=== PATIENT | female | born 1990 | race Caucasian/White ===

== ENCOUNTER 2019-05-13 20:38 | Emergency (ER) | payer OTHER ==
[~2019-05-13] VITALS: Ht 161.3 cm; Wt 93.4 kg
[2019-05-13 20:43] VITALS: BP 137/82
--- NOTE | 2019-05-13 20:49 | NUR ---
PT TAKEN TO BED 9
--- NOTE | 2019-05-13 20:57 | NUR ---
29 Y/O MALE PRESENTS TO ED, C/O LOWER ABDOMINAL PAIN 01/17 THAT STARTED TODAY. BS ACTIVE X4 QUADRANTS. SOFT, NON TENDER. C/O N/V/D. PT STATES HAVING NO APPETITE FOR FOOD. DIARRHEA IS WATERY. PT TOOK MOTRIN 800 AT APPROXIMATELY 1800 UNABLE TO ALLEVIATE PAIN. PT VSS. ERMD AWARE. WILL CONTINUE TO MONITOR.
[2019-05-13 21:47] VITALS: BP 137/82
--- NOTE | 2019-05-13 21:47 | NUR ---
PT DISCHARGED BY DR RUBIO PROVIDED WITH PAPERWORK. NO RX PROVIDED. EDUCATED PT REGARDING D/C DIAGNOSIS AND INSTRUCTIONS. PT VERBALIZED UNDERSTANDING OF TEACHING. TOLD PT TO FOLLOW UP WITH PCP AND WHEN TO RETURN TO ED. PT VSS. ALL QUESTIONS ANSWERED.
== END 2019-05-13 21:47 | disposition home or self-care (01) ==
LOC: MED 20:38
DX: K30 Functional dyspepsia (principal)
CPT/HCPCS: 99283

== ENCOUNTER 2019-07-01 07:54 | Emergency (ER) | payer OTHER ==
[~2019-07-01] VITALS: Ht 160 cm; Wt 86.2 kg
[2019-07-01 08:01] VITALS: BP 139/71
--- NOTE | 2019-07-01 08:02 | NUR ---
29 Y/O F WITH C/C OF MENSTRUAL BLEEDING X5 MONTHS. PER PT PASSING BLOOD CLOTS, AND DOES NOT HAVE A HX OF PREVIOUS BLOOD TRANSFUSIONS. PER PT NKA. NO MEDICAL HX. NO RX. DENIES N/V/D. SIDE RAIL X1. FAMILY AT BEDSIDE.
--- NOTE | 2019-07-01 08:33 | NUR ---
LAB AT BEDSIDE
[2019-07-01 08:51] LABS: BASOPHILS # (AUTO) 0.1 K/uL (0.00-0.22); BASOPHILS % (AUTO) 1.1 % (0.0-2.0); EOSINOPHILS # (AUTO) 0.1 K/uL (0-0.4); EOSINOPHILS % (AUTO) 1.4 % (0.0-4.0); HEMATOCRIT 33.1 % (36-48); HEMOGLOBIN 10.1 g/dL (12.0-16.0); LYMPHOCYTES # (AUTO) 2.4 K/uL (2.5-16.5); LYMPHOCYTES % (AUTO) 27.8 % (20.5-51.1); MEAN CORPUSCULAR HEMOGLOBIN 22 pg (27-31); MEAN CORPUSCULAR HGB CONC 31 g/dL (33-37); MEAN CORPUSCULAR VOLUME 71.3 fL (80-94); MONOCYTES # (AUTO) 0.6 K/uL (0.8-1.0); MONOCYTES % (AUTO) 7.2 % (1.7-9.3); NEUTROPHILS # (AUTO) 5.5 K/uL (1.8-7.7); NEUTROPHILS % (AUTO) 62.5 % (42.2-75.2); PLATELET COUNT (AUTO) 493 K/uL (140-450); RED BLOOD CELL COUNT(AUTO) 4.64 MIL/uL (4.20-5.40); RED CELL DISTRIBUTION WIDTH 16.5 % (11.6-13.7); WHITE BLOOD COUNT (AUTO) 8.7 K/uL (4.8-10.8)
--- NOTE | 2019-07-01 09:01 | NUR ---
ULTRASOUND AT BEDSIDE
[2019-07-01 09:02] LABS: PROTHROMBIN TIME 9.8 secs (10.8-13.4)
[2019-07-01 09:05] LABS: APPEARANCE,URINE CLOUDY (CLEAR); BILIRUBIN,URINE NEGATIVE (NEGATIVE); BLOOD, URINE 3+ (NEGATIVE); COLOR,URINE RED (YELLOW); LEUKOCYTE ESTERASE ,URINE 1+ (NEGATIVE); NITRITE, URINE POSITIVE (NEGATIVE); PH,URINE 5.5 (5.0-9.0); UGLUCOSE NEGATIVE (NEGATIVE)
[2019-07-01 09:20] LABS: BARBITURATE, URINE NEG. ng/ml (NEG <=200); BENZODIAZEPINE, URINE NEG. ng/mL (NEG <=200); CANNABINOID, URINE NEG. ng/mL (NEG <=50); COCAINE, URINE NEG. ng/mL (NEG <=300); OPIATE, URINE NEG. ng/mL (NEG <=2000); PHENCYCLIDINE SCREEN,URINE NEG. ng/mL (NEG <=25)
[2019-07-01 09:32] LABS: RBC,URINE 50-80 /HPF (0-5); WBC,URINE 0-5 /HPF (0-5)
--- NOTE | 2019-07-01 09:57 | NUR ---
PT RESTING IN BED, FAMILY AT BEDSIDE, SIDE RAIL X1
[2019-07-01] MEDS ORDERED: LEVOFLOXACIN 500 MG TAB PO ONE (10:15)
[2019-07-01 11:03] VITALS: BP 114/67
--- NOTE | 2019-07-01 11:03 | NUR ---
Patient discharged with v/s stable. Written and verbal after care instructions given and explained. Patient alert, oriented and verbalized understanding of instructions. Ambulatory with steady gait. All questions addressed prior to discharge. ID band removed. Patient advised to follow up with PMD. Rx of LEVAQUIN, TYLENOL given. Patient educated on indication of medication including possible reaction and side effects. Opportunity to ask questions provided and answered.
== END 2019-07-01 11:03 | disposition home or self-care (01) ==
LOC: MED 07:54
DX: N92.1 Excessive and frequent menstruation with irregular cycle (principal); N39.0 Urinary tract infection, site not specified; N30.90 Cystitis, unspecified without hematuria
CPT/HCPCS: 36415; 76856; 80305; 81001; 81025; 84702; 85025; 85610; 85730; 87086; 99284; Q0092

== ENCOUNTER 2019-07-07 22:49 | Emergency (ER) | payer OTHER ==
[~2019-07-07] VITALS: Ht 162.6 cm; Wt 90.7 kg
[2019-07-07 23:00] VITALS: BP 127/70
--- NOTE | 2019-07-07 23:03 | NUR ---
TO LOBBY A/W BED AMBULATORY
--- NOTE | 2019-07-07 23:14 | NUR ---
PT AMBULATED TO BED 11
--- NOTE | 2019-07-07 23:23 | NUR ---
29 Y/O FEMALE PRESENTS TO ED, C/O COUGH X3 DAYS. PT HAS PRODUCTIVE COUGH. LUNG SOUNDS BILAT CLEAR. NO SOB/DIFFICULTY BREATHING NOTED. PT C/O CHEST PAIN DURING INSPIRATION; 02/17. PT TOOK MOTRIN YESTERDAY WITH MILD RELIEF. NO FEVER NOTED. HAD EPISODE OF NAUSEA AND VOMITING YESTERDAY, NONE TODAY. PT VSS. ERMD AWARE. WILL CONTINUE TO MONITOR.
--- NOTE | 2019-07-07 23:46 | NUR ---
FLU SWAB OBTAINED AND SENT TO LAB AT THIS TIME
[2019-07-08 01:57] VITALS: BP 121/61
--- NOTE | 2019-07-08 01:57 | NUR ---
PT DISCHARGED WITH PAPERWORK. EDUCATED PT REGARDING MEDICATIONS AND D/C DIAGNOSIS. PT VERBALIZED UNDERSTANDING OF TEACHING. TOLD PT TO FOLLOW UP WITH PCP AND WHEN TO RETURN TO ED. PT AT STABLE CONDITION. ALL QUESTIONS ANSWERED.
== END 2019-07-08 01:57 | disposition home or self-care (01) ==
LOC: MED 22:49
DX: J02.8 Acute pharyngitis due to other specified organisms (principal); B96.89 Other specified bacterial agents as the cause of diseases classified elsewhere
CPT/HCPCS: 87804; 99283